=== PATIENT | male | born 1955 | race Caucasian/White ===

== ENCOUNTER 2016-09-04 11:58 | Inpatient (IN) | payer OTHER ==
[~2016-09-04] VITALS: Ht 182.9 cm; Wt 66.3 kg
[~2016-09-04 11:58] MED LIST: ACETAMINOP160 MG/51 GT; ADVAIR HFA120 INHALA IH; ADVIL,NUPRIN,M200 MG PO; AMOX TR-K CLV1 EAC4 PO; ANBESOL9 GM MM; ASPERCREME HE70.8 GM TP; ASPIR-TRIN325 M1 GT; ASPIRIN325 MG PO; ASPIRIN81 M2 GT; ATIVAN0.5 MG GT; ATIVAN0.5 MG PO; ATIVAN1 MG PO; AUGMENTIN875 MG GT; AUGMENTIN875 MG PO; AZITHROMYC200 MG/5 M PO; Ativan SL; Augmentin G; BENADRYL ALLERG25 MG GT; BENGAY113 GM TP; BENZONATATE100 MG PO; BIOTENE MOISTUR45 ML MM; BUSPAR10 MG PO; BUSPAR15 MG PO; Benadryl G; CELEBREX200 MG PO; CELECOXIB200 MG PO; CELEXA20 MG GT; CELEXA20 MG PO; CELEXA40 MG PO; CHILDREN'S325 MG/10. GT; COUGH SYRU100 MG/5 M PO; DAILY VALUE1 EACH PO; DIFLUCAN 440 MG/1 ML GT; DIFLUCAN200 MG GT; DIFLUCAN200 MG PO; DOCU LIQUI50 MG/5 ML GT; DULCOLAX10 MG PR; DUONEB 2.5-0.5 M3 ML IH; DURAGESIC12 MCG TD; Duragesic TD; ECOTRIN325 MG PO; ENDOCET 5-3251 EACH GT; ESCITALOPRAM OX10 MG PO; FENTANYL1 EAC4 TD; FEOSOL300 MG/5 M PO; FERROUS SULFAT324 M1 PO; FLEXERIL10 MG GT; FLEXERIL10 MG PO; FOLBIC RF TABL1 EACH PO; FOLIC ACID1 MG PO; GABAPENTIN250 MG/5 M GT; HEPARIN SO5000 UNITS SC; HYCODAN SYRUP480 ML PO; K-SOL20 MEQ/15 PO; LANSOPRAZOLE30 MG PO; LEVAQUIN500 MG GT; LEVAQUIN500 MG PO; LEVOFLOXACIN500 MG PO; LEVOTHYROXINE50 MCG GT; LEVOTHYROXINE50 MCG PO; LEVOXYL75 MCG PO; LEXAPRO; LEXAPRO10 MG GT; LEXAPRO10 MG PO; LIBRIUM10 MG PO; LOPRESSOR50 MG PO; LORAZEPAM0.5 MG GT; LORAZEPAM1 MG PO; LOVENOX40 MG/0.4 SC; METOPROLOL SUCC50 MG PO; METOPROLOL TART50 MG PO; MILK OF MAGN GT; MILK OF MAGNESI10 ML GT; MORPHINE SULFAT15 M1 PO; MOTRIN400 MG PO; MUCINEX600 MG PO; MYCOSTATIN 100,60 ML PO; NAPROXEN SODIU220 MG GT; ONDANSETRON ODT4 MG GT; ONE DAILY ESSE1 EACH PO; ONE DAILY1 EAC3 PO; OXYCODONE HCL10 MG GT; OXYCODONE HCL5 MG PO; OXYCODONE-APAP1 EACH GT; PERCOCET 5/31 TABLET GT; PERCOCET 5/31 TABLET PO; POTASSIUM CHLO20 ME1 PO; POTASSIUM20 MEQ/11 GT; PREDNISONE10 MG PO; PREDNISONE5 MG/1 ML PO; PREVACID SOLUTA30 MG GT; PREVACID SOLUTA30 MG PO; PROAIR HFA8.5 GM IH; PROMETHAZINE HC25 M1 GT; PROVENTIL,2.5 MG/3 M IH; Prevacid G; ROXICODONE5 MG GT; SALINE NASAL SP45 ML BOTH NARES; SERTRALINE HCL25 MG GT; SERTRALINE HCL50 MG GT; SILVADENE20 GM TP; SODIUM CHLORIDE1 G1 GT; SODIUM CHLORIDE1 G1 PO; SYNTHROID50 MCG GT; SYNTHROID50 MCG PO; SYNTHROID75 MCG GT; THIAMINE HCL100 MG PO; THYROID MEDICATION PO; TIROSINT50 MCG PO; TRAMADOL HCL50 MG PO; TRAZODONE HCL50 MG GT; TYLENOL EXTRA500 MG PO; TYLENOL REGULA325 MG GT; TYLENOL REGULA325 MG PO; TYLENOL WITH C1 EACH GT; TYLENOL WITH C1 EACH PO; Thiamine,Vitamin B1 PO; Tylenol Liquid GT; VIBRAMYCIN50 MG/5 ML PO; VISINE TEARS DR30 ML BOTH EYES; ZANAFLEX2 MG PO; ZANTAC150 MG GT; ZANTAC150 MG PO; ZOFRAN4 MG PO; [UNRECOGNIZED DRUG - OTHER] GT
[2016-09-04 13:01] LABS: EOSINOPHIL (%) 4.2 % (0-5); EOSINOPHIL COUNT 0.2 K/uL (0-0.3); HEMATOCRIT 33.9 % (38.0-50.0); MCH 28.3 PG (29.0-34.0); MCHC 31.3 G/DL (30.0-36.0); MCV 90.4 FL (86-99); MEAN PLAT.VOLUME 9.3 uM^3 (9.0-12.4); MONOCYTE (%) 6.9 % (3-12); MONOCYTE COUNT 0.4 K/uL (0-0.8); NEUTROPHIL (%) 67.1 % (45-76); NEUTROPHIL COUNT 3.4 K/uL (1.8-6.4); PLATELET COUNT 284 K/uL (156-360); RBC DIS.WIDTH-CV 16.2 % (11.8-14.6); RBC DIS.WIDTH-SD 51.8 % (39-53); RED BLOOD COUNT 3.75 M/uL (4.00-5.50); WHITE BLOOD COUNT 5.1 K/uL (4.1-10.2)
[2016-09-04 14:16] LABS: CHLORIDE 105 mEq/L (99-109); POTASSIUM 4.3 mEq/L (3.7-5.4); SODIUM 135 mEq/L (136-147)
[2016-09-04 14:18] LABS: GLUCOSE 56 mg/dL (70-99)
[2016-09-04 14:19] LABS: ANION GAP 12 MEQ/L (2-14)
[2016-09-04 14:20] LABS: TOTAL BILIRUBIN 0.2 mg/dL (0.0-1.0)
[2016-09-04 14:21] LABS: ALKALINE PHOSPHATASE 106 IU/L (3-129)
[2016-09-04 14:22] LABS: GFR ESTIMATE (CALCULATED) > 59 mL/min/
[2016-09-04 14:23] LABS: UREA NITROGEN (BUN) 14 mg/dL (9-23)
[2016-09-04 14:29] LABS: TROP-I INTERPRETATION NEGATIVE; TROPONIN-I < 0.01 ng/mL (0.0-0.30)
[2016-09-04 14:54] LABS: ADD MIUA? NO; BILIRUBIN NEGATIVE; BLOOD NEGATIVE; COLOR YELLOW ((YELLOW)); GLUCOSE (STRIP) NEGATIVE; KETONES NEGATIVE; LEUKOCYTES NEGATIVE; NITRITE NEGATIVE; PH, URINE 6.5 (5-8); PROTEIN (STRIP) NEGATIVE; SPECIFIC GRAVITY 1.015 (1.000-1.030); UCUL ADDED? NO; UROBILINOGEN 0.2 MG/DL (0.2-1.0)
[2016-09-04] MEDS ORDERED: FEOSOL300 MG/5 M GT (16:09)
[2016-09-04] MEDS ORDERED: LEXAPRO20 MG GT (16:10)
[2016-09-04] MEDS ORDERED: BUSPAR15 MG GT (16:11)
[2016-09-04] MEDS ORDERED: LIBRIUM10 MG GT ×2 (16:11)
[2016-09-04] MEDS ORDERED: VITAMIN B12-FO1 EACH GT (16:13)
[2016-09-04 21:10] VITALS: BP 95/57
[2016-09-04 23:10] VITALS: BP 141/85
[2016-09-05 04:00] VITALS: BP 140/90
[2016-09-05 06:52] LABS: EOSINOPHIL (%) 1.5 % (0-5); EOSINOPHIL COUNT 0.1 K/uL (0-0.3); HEMATOCRIT 33.1 % (38.0-50.0); IMMATURE GRANULOCYTE (%) 1.5 % (0.0-0.7); IMMATURE GRANULOCYTE COUNT 0.1 K/uL; LYMPHOCYTE COUNT 0.8 K/uL (1.0-2.8); MCH 28.4 PG (29.0-34.0); MCHC 31.1 G/DL (30.0-36.0); MCV 91.2 FL (86-99); MEAN PLAT.VOLUME 8.8 uM^3 (9.0-12.4); MONOCYTE (%) 4.5 % (3-12); MONOCYTE COUNT 0.2 K/uL (0-0.8); NEUTROPHIL (%) 74.9 % (45-76); NEUTROPHIL COUNT 3.5 K/uL (1.8-6.4); PLATELET COUNT 214 K/uL (156-360); RBC DIS.WIDTH-CV 15.8 % (11.8-14.6); RBC DIS.WIDTH-SD 52.9 % (39-53); RED BLOOD COUNT 3.63 M/uL (4.00-5.50); WHITE BLOOD COUNT 4.7 K/uL (4.1-10.2)
[2016-09-05 07:16] LABS: ANION GAP 13 MEQ/L (2-14); CHLORIDE 103 MEQ/L (99-109); GFR ESTIMATE (CALCULATED) > 59 mL/min/; GLUCOSE 43 mg/dL (70-99); POTASSIUM 4.4 MEQ/L (3.7-5.4); SAMPLE HEMOLYSIS CHECK 0; SAMPLE ICTERIC CHECK 0; SAMPLE LIPEMIA CHECK 0; SODIUM 136 MEQ/L (136-147); UREA NITROGEN (BUN) 15 mg/dL (9-23)
[2016-09-05 09:09] VITALS: BP 129/80
[2016-09-05 12:43] VITALS: BP 128/75
[2016-09-05 17:01] VITALS: BP 130/76
[2016-09-05 20:15] VITALS: BP 122/76
[2016-09-05 23:50] VITALS: BP 117/65
[2016-09-06 03:50] VITALS: BP 129/79
[2016-09-06 05:25] LABS: EOSINOPHIL COUNT 0.1 K/uL (0-0.3); HEMATOCRIT 30.2 % (38.0-50.0); IMMATURE GRANULOCYTE (%) 0.3 % (0.0-0.7); LYMPHOCYTE COUNT 0.7 K/uL (1.0-2.8); MCHC 32.1 G/DL (30.0-36.0); MCV 90.1 FL (86-99); MEAN PLAT.VOLUME 8.8 uM^3 (9.0-12.4); MONOCYTE (%) 4.8 % (3-12); MONOCYTE COUNT 0.3 K/uL (0-0.8); NEUTROPHIL (%) 81.8 % (45-76); NEUTROPHIL COUNT 5.3 K/uL (1.8-6.4); PLATELET COUNT 179 K/uL (156-360); RBC DIS.WIDTH-CV 15.8 % (11.8-14.6); RBC DIS.WIDTH-SD 51.4 % (39-53); RED BLOOD COUNT 3.35 M/uL (4.00-5.50)
[2016-09-06 05:26] LABS: WHITE BLOOD COUNT 6.5 K/uL (4.1-10.2)
[2016-09-06 05:40] LABS: ANION GAP 9 MEQ/L (2-14); CHLORIDE 103 MEQ/L (99-109); GFR ESTIMATE (CALCULATED) > 59 mL/min/; GLUCOSE 129 mg/dL (70-99); POTASSIUM 3.5 MEQ/L (3.7-5.4); SAMPLE HEMOLYSIS CHECK 0; SAMPLE ICTERIC CHECK 0; SAMPLE LIPEMIA CHECK 0; SODIUM 137 MEQ/L (136-147); UREA NITROGEN (BUN) 10 mg/dL (9-23)
[2016-09-06 08:01] VITALS: BP 140/65
[2016-09-06 11:26] VITALS: BP 129/80
== END 2016-09-06 15:19 | disposition home or self-care (01) | DRG 312 ==
LOC: EME → EDBD 11:58 → EDOF 15:22 → 4SOUTH 15:22
PROVIDERS: Emergency Medicine; Family Medicine
DX: R55 Syncope and collapse (principal); E87.2 Acidosis; I95.9 Hypotension, unspecified; Z93.0 Tracheostomy status; Z93.1 Gastrostomy status; D64.9 Anemia, unspecified; B19.20 Unspecified viral hepatitis C without hepatic coma; I10 Essential (primary) hypertension; F10.10 Alcohol abuse, uncomplicated; F41.9 Anxiety disorder, unspecified; J44.9 Chronic obstructive pulmonary disease, unspecified; Z91.81 History of falling
CPT/HCPCS: 70450; 71010; 80048; 80048 91; 80053; 81003; 83605; 84484; 85025; 85027; 93005; 94640; 94799; 99281; 99285; J1650; J7030